=== PATIENT | male | born 2005 | race Caucasian/White ===

== ENCOUNTER 2023-03-16 20:27 | Emergency (ER) | payer SELFPAY | END 2023-03-16 22:26 | disposition home or self-care (01) | LOC: CSHERS 20:27 | DX: S61.212A Laceration without foreign body of right middle finger without damage to nail, initial encounter (principal); W26.9XXA Contact with unspecified sharp object(s), initial encounter | CPT/HCPCS: 12001 ==

== ENCOUNTER 2023-03-27 11:52 | Emergency (ER) | payer OTHER, SELFPAY ==
[2023-03-27 15:12] LABS: MONO NEGATIVE CONTROL ZONE White (Negative) (White); MONO POSITIVE CONTROL Pink Line (Positive) (PINK/RED); Mononucleosis NEGATIVE (NEGATIVE)
[2023-03-27] MEDS ORDERED: Dexamethasone 4 MG TAB ONE (15:34)
[2023-03-27] MEDS ORDERED: Ketorolac Tromethamine 30 MG/ML VIAL ONE (15:34)
== END 2023-03-27 15:41 | disposition home or self-care (01) ==
LOC: CSHERS 11:52
DX: J02.9 Acute pharyngitis, unspecified (principal)
CPT/HCPCS: 36415; 86308; 87081; 87430; 96372; 99283; J1885; J8540